=== PATIENT | male | born 1965 | race Caucasian/White ===

== ENCOUNTER 2016-08-22 08:35 | Day surgery (SDC) | payer OTHER ==
[~2016-08-22] VITALS: Ht 172.7 cm; Wt 58.0 kg
[~2016-08-22 08:35] MED LIST: ALBU6.7H; AMIT25TA PO; ASCO-96 PO; BENA20TA2 PO; BUDE10.2; BUPR75TA6 PO; CALC3.7S5 PO; CHOL2000 PO; CYAN1TAB39 PO; CYCL5TAB PO; LORA0.5T PO; MELO-190 PO; MORP15TA39 PO; MORP60TA34 PO; NAPR-874 PO; OCTR50AM IM; OMEP40CA6 PO; ONDA4TAB7 PO; OXYC10TA6 PO; POTA20TA6 PO; TIZA4CAP PO
[2016-08-22] MEDS ORDERED: LACTATED RINGERS 1,000 ML IV SCH (09:31)
[2016-08-22 09:32] VITALS: BP 131/72
[2016-08-22] MEDS ORDERED: LIDOCAINE 1%, 2ML SQ PRN (10:00)
[2016-08-22] MEDS ORDERED: MIDAZOLAM 1 MG/ML, 5ML ONE (10:15)
[2016-08-22] MEDS ORDERED: FENTANYL PF 250 MCG/5ML ONE (10:15)
[2016-08-22] MEDS ORDERED: ROCURONIUM 10 MG/ML ONE (10:26)
[2016-08-22] MEDS ORDERED: PROPOFOL 10 MG/ML, 20ML ONE (10:26)
[2016-08-22] MEDS ORDERED: HYDROmorphone 2 MG/ML, 1ML ONE (11:14)
[2016-08-22] MEDS ORDERED: MEPERIDINE/PF 25MG/0.5ML IVPush PRN (11:30)
[2016-08-22] MEDS ORDERED: hydrALAzine 20 MG/ML, 1ML IV PRN (11:30)
[2016-08-22] MEDS ORDERED: LABETALOL 5MG/ML, 20ML IV PRN (11:30)
[2016-08-22] MEDS ORDERED: ACETAMINOPHEN 325 MG TABLET PO PRN (11:30)
[2016-08-22] MEDS ORDERED: OXYcodone 5 MG/5 ML ORAL.SOL UDC PO PRN (11:30)
[2016-08-22] MEDS ORDERED: MIDAZOLAM 1 MG/ML, 2ML IV PRN (11:30)
[2016-08-22] MEDS ORDERED: HYDROmorphone 1 MG/ML, 1ML IV PRN (11:30)
[2016-08-22] MEDS ORDERED: FENTANYL PF 100 MCG/2ML IV PRN (11:30)
[2016-08-22] MEDS ORDERED: ALBUTEROL SULFATE 2.5 MG/3 ML NPPB PRN (11:30)
[2016-08-22] MEDS ORDERED: PROMETHAZINE 25 MG/ML, 1ML IV PRN (11:30)
[2016-08-22] MEDS ORDERED: ONDANSETRON 2MG/ML, 2ML IVPush PRN (11:30)
== END 2016-08-22 13:00 | disposition home or self-care (01) ==
LOC: OUT 08:35
PROVIDERS: ATTEND Internal Medicine Hematology & Oncology
DX: M48.8X4 Other specified spondylopathies, thoracic region (principal); E34.0 Carcinoid syndrome; J44.9 Chronic obstructive pulmonary disease, unspecified; F17.210 Nicotine dependence, cigarettes, uncomplicated; I10 Essential (primary) hypertension; J45.909 Unspecified asthma, uncomplicated; F12.10 Cannabis abuse, uncomplicated; Z90.49 Acquired absence of other specified parts of digestive tract
CPT/HCPCS: 20225; 77012; 88307; 88311; J2250; J2704; J3010; J7120

== ENCOUNTER 2016-09-09 09:03 | Emergency (ER) | payer OTHER ==
[~2016-09-09] VITALS: Ht 172.7 cm; Wt 58.5 kg
[2016-09-09] MEDS ORDERED: ONDANSETRON 2MG/ML, 2ML ONE (09:36)
[2016-09-09] MEDS ORDERED: FENTANYL PF 100 MCG/2ML ONE (09:36)
[2016-09-09] MEDS ORDERED: FENTANYL PF 100 MCG/2ML IV ONE (10:00)
[2016-09-09] MEDS ORDERED: CARISOPRODOL 350 MG TABLET PO ONE (10:30)
[2016-09-09 13:01] VITALS: BP 110/62
== END 2016-09-09 13:05 | disposition home or self-care (01) ==
LOC: ED 10:38
DX: N43.3 Hydrocele, unspecified (principal); M54.5 Low back pain; J45.909 Unspecified asthma, uncomplicated; Z90.49 Acquired absence of other specified parts of digestive tract
CPT/HCPCS: 76870; 96374; 99284; J3010

== ENCOUNTER → 2017-05-30 | Outpatient (CLI) | payer OTHER ==
[~2017-05-30] MED LIST changes: +EVER10TA PO; -MELO-190 PO; +MELO7.5T31 PO; +MORP-52 PO; -MORP15TA39 PO; -NAPR-874 PO; +NAPR250T6 PO; +OMNIPAQUE 350 MG/ML, 100ML BOTTLE ONE
== END | disposition home or self-care (01) ==
LOC: CFH 08:42
PROVIDERS: ATTEND Specialist
DX: C78.6 Secondary malignant neoplasm of retroperitoneum and peritoneum (principal); C78.7 Secondary malignant neoplasm of liver and intrahepatic bile duct; C7A.098 Malignant carcinoid tumors of other sites; R59.9 Enlarged lymph nodes, unspecified; J90 Pleural effusion, not elsewhere classified
CPT/HCPCS: 71260; 74177; Q9967

== ENCOUNTER → 2017-06-26 | Outpatient (CLI) | payer OTHER ==
[~2017-06-26] MED LIST changes: -OMNIPAQUE 350 MG/ML, 100ML BOTTLE ONE
== END | disposition home or self-care (01) ==
LOC: CARD 12:45
PROVIDERS: ATTEND Family Medicine
DX: J44.9 Chronic obstructive pulmonary disease, unspecified (principal); E78.5 Hyperlipidemia, unspecified; K21.9 Gastro-esophageal reflux disease without esophagitis; I10 Essential (primary) hypertension; L98.9 Disorder of the skin and subcutaneous tissue, unspecified
CPT/HCPCS: 94060; 94726; 94729

== ENCOUNTER → 2017-07-28 | Outpatient (CLI) | payer OTHER | END | disposition home or self-care (01) | LOC: RAD 12:56 | PROVIDERS: ATTEND Anesthesiology | DX: Z01.818 Encounter for other preprocedural examination (principal); J90 Pleural effusion, not elsewhere classified; R94.31 Abnormal electrocardiogram [ECG] [EKG] | CPT/HCPCS: 71046; 93005 ==

== ENCOUNTER 2017-09-06 12:05 | Emergency (ER) | payer OTHER ==
[~2017-09-06] VITALS: Ht 172.7 cm; Wt 63.6 kg
[~2017-09-06 12:05] MED LIST changes: -BUDE10.2; +BUDE10.2 INH; +SULF1TAB24 PO
[2017-09-06 12:09] VITALS: BP 156/84
== END 2017-09-06 13:57 | disposition home or self-care (01) ==
LOC: ED 12:57
DX: T81.31XA Disruption of external operation (surgical) wound, not elsewhere classified, initial encounter (principal); F17.200 Nicotine dependence, unspecified, uncomplicated
CPT/HCPCS: 99282

== ENCOUNTER → 2017-10-06 | Outpatient (CLI) | payer OTHER ==
[~2017-10-06] MED LIST changes: +MORP4CAR IT; +OMNIPAQUE 350 MG/ML, 100ML BOTTLE ONE
== END | disposition home or self-care (01) ==
LOC: CFH 09:48
PROVIDERS: ATTEND Specialist
DX: J90 Pleural effusion, not elsewhere classified (principal); R91.8 Other nonspecific abnormal finding of lung field; K86.89 Other specified diseases of pancreas; C7A.00 Malignant carcinoid tumor of unspecified site; C34.90 Malignant neoplasm of unspecified part of unspecified bronchus or lung
CPT/HCPCS: 71260; 74160; Q9967

== ENCOUNTER 2017-10-24 13:40 | Emergency (ER) | payer OTHER ==
[~2017-10-24] VITALS: Ht 172.7 cm; Wt 58.1 kg
[~2017-10-24 13:40] MED LIST changes: -OMNIPAQUE 350 MG/ML, 100ML BOTTLE ONE
[2017-10-24 14:27] VITALS: BP 202/94
== END 2017-10-24 14:31 | disposition home or self-care (01) ==
LOC: ED 14:00
DX: I10 Essential (primary) hypertension (principal); J45.909 Unspecified asthma, uncomplicated
CPT/HCPCS: 99281

== ENCOUNTER 2018-01-07 12:57 | Inpatient (IN) | payer OTHER ==
[~2018-01-07] VITALS: Ht 172.7 cm; Wt 55.4 kg
[~2018-01-07 12:57] MED LIST changes: -ALBU6.7H; +ALBU6.7H INH; -BENA20TA2 PO; +BENA20TA4 PO; +CHLO25TA PO
[2018-01-07] MEDS ORDERED: SODIUM CHLORIDE 0.9% 1,000 ML IV ONE (14:00)
[2018-01-07] MEDS ORDERED: POTASSIUM CHLORIDE 20 MEQ TAB.ER.PRT PO ONE ×2 (14:00→18:00)
[2018-01-07] MEDS ORDERED: POTASSIUM CHLORIDE 40 MEQ in SODIUM CHLORIDE 0.9% 500 ML IV ONE ×2 (14:00→19:30)
[2018-01-07] MEDS ORDERED: POTASSIUM CHLORIDE 20 MEQ TAB.ER.PRT ONE (14:12)
[2018-01-07 15:04] VITALS: BP 144/83
[2018-01-07 15:04] LABS: CLOSTRIDIUM DIFFICILE ANTIGEN NEGATIVE; CLOSTRIDIUM DIFFICILE TOXIN NEGATIVE (Negative)
[2018-01-07] MEDS ORDERED: LOSA100T7 PO (15:11)
[2018-01-07] MEDS ORDERED: ALBUTEROL SULFATE 2.5 MG/3 ML NPPB PRN (15:30)
[2018-01-07] MEDS ORDERED: MORPHINE SULFATE IT SCH (16:00)
[2018-01-07] MEDS: TIZANIDINE 4MG TABLET PO SCH ×2 (16:53→21:24)
[2018-01-07] MEDS ORDERED: MAGNESIUM SULFATE PMX 4GM/100M 100 ML IV ONE (17:00)
[2018-01-07 18:52] VITALS: BP 128/78
[2018-01-07] MEDS: LORazepam 0.5MG TABLET PO SCH (21:24)
[2018-01-07] MEDS: AMITRIPTYLINE 25 MG TABLET PO SCH (21:24)
[2018-01-08 00:46] VITALS: BP 112/70
[2018-01-08 05:16] LABS: BASOPHILS # (AUTO) 0.01 x10^3/uL (0-0.1); BASOPHILS % (AUTO) 0 % (0-1); EOSINOPHILS # (AUTO) 0.07 x10^3/uL (0-0.4); EOSINOPHILS % (AUTO) 1 % (1-7); LYMPHOCYTES # (AUTO) 0.75 x10^3/uL (1-3.4); LYMPHOCYTES % (AUTO) 13 % (22-44); MD NO; MEAN CORPUSCULAR HEMOGLOBIN 23.1 pg (27.5-34.5); MEAN PLATELET VOLUME 8.1 fL (7.4-10.4); MONOCYTES # (AUTO) 0.23 x10^3/uL (0.2-0.8); MONOCYTES % (AUTO) 4 % (2-9); NEUTROPHILS # (AUTO) 4.93 x10^3/uL (1.8-6.8); NEUTROPHILS % (AUTO) 82 % (42-75); PLATELET COUNT 350 x10^3/uL (130-400); RED BLOOD COUNT 3.99 x10^6/uL (4.38-5.82); RED CELL DISTRIBUTION WIDTH 16.8 % (9.4-14.8)
[2018-01-08 05:24] LABS: ANION GAP 12 mmol/L (5-15); CALCIUM 6.3 mg/dL (8.5-10.1); CHLORIDE 109 mmol/L (98-107); CREATININE 1.27 mg/dL (0.7-1.3)
[2018-01-08] MEDS: MORPHINE SULFATE IT SCH ×4 (06:00→20:44)
[2018-01-08] MEDS ORDERED: POTASSIUM PHOSPHATE 44 MEQ in SODIUM CHLORIDE 0.9% 500 ML IV ONE (06:30)
[2018-01-08] MEDS ORDERED: POTASSIUM PHOS 4.4 MEQ/ML IV SCH (06:30)
[2018-01-08] MEDS: POTASSIUM CHLORIDE 20 MEQ TAB.ER.PRT PO SCH ×3 (06:46→16:47)
[2018-01-08] MEDS: OMEPRAZOLE 20 MG CAPSULE.DR PO SCH (07:16)
[2018-01-08 07:33] VITALS: BP 134/78
[2018-01-08] MEDS ORDERED: hydrALAzine 20 MG/ML, 1ML IVPush PRN ×2 (08:30)
[2018-01-08] MEDS ORDERED: ACETAMINOPHEN 325 MG TABLET PO PRN (08:30)
[2018-01-08] MEDS ORDERED: LORazepam 0.5MG TABLET PO SCH (09:00)
[2018-01-08] MEDS ORDERED: TEMPLATE NON-FORMULARY MED. (Budesonide/Formoterol Fumarate (Symbicort 160-4.5 Mcg Inhaler INH SCH (09:00)
[2018-01-08] MEDS: LOSARTAN 50MG TABLET PO SCH (09:22)
[2018-01-08] MEDS: TIZANIDINE 4MG TABLET PO SCH ×3 (09:22→20:41)
[2018-01-08] MEDS: CHLORTHALIDONE 25 MG TABLET PO SCH (09:23)
[2018-01-08] MEDS: FLUTICASONE/VILANTEROL 200-25MCG/INH INH SCH (09:23)
[2018-01-08] MEDS: BUPROPION 75 MG TABLET HOMEMEDPO SCH (09:23)
[2018-01-08] MEDS: EVEROLIMUS 10 MG HOMEMEDPO SCH (10:56)
[2018-01-08] MEDS ORDERED: LOPERAMIDE 2 MG CAPSULE PO PRN (12:00)
[2018-01-08] MEDS ORDERED: LOPERAMIDE 1 MG/5 ML, 10ML UDC PO ONE (12:00)
[2018-01-08 13:20] VITALS: BP 114/68
[2018-01-08 16:33] LABS: ANION GAP 12 mmol/L (5-15); CALCIUM 6.3 mg/dL (8.5-10.1); CHLORIDE 111 mmol/L (98-107); CREATININE 1.18 mg/dL (0.7-1.3)
[2018-01-08 16:48] LABS: CREATINE KINASE, TOTAL 2291 U/L (39-308)
[2018-01-08] MEDS ORDERED: POTASSIUM CHLORIDE 40 MEQ in SODIUM CHLORIDE 0.9% 500 ML IV ONE (17:00)
[2018-01-08 19:15] VITALS: BP 144/80
[2018-01-08] MEDS ORDERED: TIZANIDINE 2MG TABLET ONE (20:30)
[2018-01-08] MEDS: LORazepam 0.5MG TABLET PO SCH (20:40)
[2018-01-08] MEDS: AMITRIPTYLINE 25 MG TABLET PO SCH (20:40)
[2018-01-09 00:43] VITALS: BP 151/85
[2018-01-09 05:08] LABS: ANION GAP 12 mmol/L (5-15); CALCIUM 6.1 mg/dL (8.5-10.1); CHLORIDE 112 mmol/L (98-107); CREATININE 1.02 mg/dL (0.7-1.3)
[2018-01-09] MEDS ORDERED: POTASSIUM PHOSPHATE 44 MEQ in SODIUM CHLORIDE 0.9% 500 ML IV ONE (05:30)
[2018-01-09] MEDS ORDERED: POTASSIUM PHOS 4.4 MEQ/ML IV SCH (05:30)
[2018-01-09] MEDS ORDERED: MAGNESIUM SULFATE PMX 2GM/50ML 50 ML IV ONE (05:30)
[2018-01-09] MEDS: MORPHINE SULFATE IT SCH ×3 (06:00→16:00)
[2018-01-09 07:05] VITALS: BP 124/75
[2018-01-09] MEDS ORDERED: TIZANIDINE 2MG TABLET ONE ×2 (08:02→16:09)
[2018-01-09] MEDS: POTASSIUM CHLORIDE 20 MEQ TAB.ER.PRT PO SCH ×2 (08:08→16:16)
[2018-01-09] MEDS: OMEPRAZOLE 20 MG CAPSULE.DR PO SCH (08:09)
[2018-01-09] MEDS: LOSARTAN 50MG TABLET PO SCH (08:10)
[2018-01-09] MEDS: TIZANIDINE 4MG TABLET PO SCH ×2 (08:10→16:00)
[2018-01-09] MEDS: BUPROPION 75 MG TABLET HOMEMEDPO SCH (08:11)
[2018-01-09] MEDS: FLUTICASONE/VILANTEROL 200-25MCG/INH INH SCH (08:11)
[2018-01-09] MEDS: EVEROLIMUS 10 MG HOMEMEDPO SCH (08:11)
[2018-01-09] MEDS: CHLORTHALIDONE 25 MG TABLET PO SCH (08:11)
[2018-01-09] MEDS ORDERED: MAGNESIUM OXIDE 400 MG TABLET PO SCH (09:00)
[2018-01-09 13:34] LABS: ANION GAP 12 mmol/L (5-15); CALCIUM 6.5 mg/dL (8.5-10.1); CHLORIDE 111 mmol/L (98-107)
[2018-01-09 13:35] LABS: CREATININE 0.95 mg/dL (0.7-1.3)
[2018-01-09 13:55] VITALS: BP 142/87
[2018-01-09] MEDS ORDERED: POTA20TA6 PO (14:14)
[2018-01-09] MEDS ORDERED: MAGN400T26 PO (14:14)
[2018-01-09] MEDS ORDERED: LOPE2CAP PO (14:14)
== END 2018-01-09 17:00 | disposition home or self-care (01) | DRG 682 ==
LOC: ED 13:55 → OBSVTOIN 13:56 → 5SO 13:56 → INTOOBSV 13:56 → ED 14:07 → DCLOUNGE 01-09 15:59
PROVIDERS: ADMIT Family Medicine; ATTEND Family Medicine
DX: N17.9 Acute kidney failure, unspecified (principal); E43 Unspecified severe protein-calorie malnutrition; E34.0 Carcinoid syndrome; C78.7 Secondary malignant neoplasm of liver and intrahepatic bile duct; C78.02 Secondary malignant neoplasm of left lung; C78.01 Secondary malignant neoplasm of right lung; C79.51 Secondary malignant neoplasm of bone; Z68.1 Body mass index [BMI] 19.9 or less, adult; E87.6 Hypokalemia; E83.42 Hypomagnesemia; K52.9 Noninfective gastroenteritis and colitis, unspecified; Z96.642 Presence of left artificial hip joint; Z87.891 Personal history of nicotine dependence; E83.39 Other disorders of phosphorus metabolism; D63.8 Anemia in other chronic diseases classified elsewhere; D50.9 Iron deficiency anemia, unspecified; F12.20 Cannabis dependence, uncomplicated; F32.9 Major depressive disorder, single episode, unspecified; I10 Essential (primary) hypertension; J44.9 Chronic obstructive pulmonary disease, unspecified; Z85.89 Personal history of malignant neoplasm of other organs and systems; Z88.8 Allergy status to other drugs, medicaments and biological substances; C80.1 Malignant (primary) neoplasm, unspecified; N18.9 Chronic kidney disease, unspecified; J45.909 Unspecified asthma, uncomplicated
CPT/HCPCS: 36415; 80048; 82550; 83735; 84100; 84132; 85025; 87324; 93005; 96374; 99285; G0378; J3480; J0360; J3475; J7030; J7040

== ENCOUNTER 2018-03-06 13:22 | Inpatient (IN) | payer OTHER ==
[~2018-03-06] VITALS: Ht 172.7 cm; Wt 59.6 kg
[~2018-03-06 13:22] MED LIST changes: +LOPE2CAP PO; +LOSA100T7 PO; +MAGN400T26 PO
[2018-03-06] MEDS ORDERED: POTA20TA6 PO (13:42)
[2018-03-06] MEDS ORDERED: CALCIUM GLUCONATE 9.2 MEQ in SODIUM CHLORIDE 0.9% 100 ML IV ONE ×2 (15:00→18:30)
[2018-03-06] MEDS ORDERED: MAGNESIUM SULFATE 1 GM in SODIUM CHLORIDE 0.9% 50 ML IV ONE (15:00)
[2018-03-06] MEDS ORDERED: SODIUM CHLORIDE 0.9% 1,000ML IVBOLUS ONE (15:00)
[2018-03-06] MEDS ORDERED: OCTREOTIDE ACETATE IM SCH (16:00)
[2018-03-06] MEDS ORDERED: ONDANSETRON 4 MG TABLET PO PRN (16:00)
[2018-03-06] MEDS ORDERED: ONDANSETRON ODT 4 MG PO PRN (16:00)
[2018-03-06] MEDS ORDERED: LOPERAMIDE 2 MG CAPSULE PO PRN (16:00)
[2018-03-06] MEDS ORDERED: TRAZODONE 50MG TABLET PO PRN (16:00)
[2018-03-06] MEDS ORDERED: hydrALAzine 20 MG/ML, 1ML IVPush PRN (16:00)
[2018-03-06 17:20] VITALS: BP 131/73
[2018-03-06] MEDS: SODIUM CHLORIDE 0.9% 1,000 ML IV SCH (17:54)
[2018-03-06] MEDS: TIZANIDINE 4MG TABLET PO SCH ×2 (17:55→21:00)
[2018-03-06] MEDS: MAGNESIUM SULFATE PMX 4GM/100M 100 ML IV SCH ×2 (18:10→23:40)
[2018-03-06] MEDS: MORPHINE SULFATE 4 MG/ML, 1ML IV SCH ×2 (18:19→21:00)
[2018-03-06 19:03] VITALS: BP 122/72
[2018-03-06] MEDS: BUDESONIDE 0.5 MG/2 ML INHA HHN SCH (21:00)
[2018-03-06] MEDS: ALBUTEROL SULFATE 2.5 MG/3 ML HHN SCH (21:20)
[2018-03-06] MEDS: HEPARIN 5,000 UNITS/ML, 1ML SQ SCH (21:21)
[2018-03-06] MEDS: AMITRIPTYLINE 25 MG TABLET PO SCH (21:21)
[2018-03-06] MEDS: LORazepam 0.5MG TABLET PO SCH (21:21)
[2018-03-06 21:32] LABS: ABSOLUTE RETICS # 0.013 x10^6/uL (0.5-1.5); RETICULOCYTE COUNT % 0.41 % (0.5-1.5)
[2018-03-06 21:34] LABS: RED BLOOD COUNT 3.12 x10^6/uL (4.38-5.82)
[2018-03-06 22:38] LABS: CLOSTRIDIUM DIFFICILE ANTIGEN NEGATIVE; CLOSTRIDIUM DIFFICILE TOXIN NEGATIVE (Negative)
[2018-03-07 02:00] VITALS: BP 127/71
[2018-03-07] MEDS: HEPARIN 5,000 UNITS/ML, 1ML SQ SCH ×3 (04:42→20:46)
[2018-03-07 04:44] LABS: CHLORIDE 112 mmol/L (98-107)
[2018-03-07 04:53] LABS: MEAN CORPUSCULAR HEMOGLOBIN 23.7 pg (27.5-34.5); MEAN CORPUSCULAR HGB CONC 32.8 g/dL (33.2-36.2); MEAN CORPUSCULAR VOLUME 72.3 fL (81-97); MEAN PLATELET VOLUME 8.1 fL (7.4-10.4); PLATELET COUNT 291 x10^3/uL (130-400); RED CELL DISTRIBUTION WIDTH 20.3 % (9.4-14.8)
[2018-03-07 05:00] LABS: ALANINE AMINOTRANSFERASE 95 U/L (12-78); ALBUMIN 2.5 g/dL (3.4-5.0); ALKALINE PHOSPHATASE 635 U/L (45-117); ANION GAP 14 mmol/L (5-15); BILIRUBIN,TOTAL 0.4 mg/dL (0.2-1.0); CALCIUM 6.8 mg/dL (8.5-10.1); CREATININE 0.99 mg/dL (0.7-1.3); THYROID STIMULATING HORMONE 0.005 mIU/L (0.358-3.740); TOTAL PROTEIN 6.9 g/dL (6.4-8.2)
[2018-03-07] MEDS ORDERED: CALCIUM GLUCONATE 9.2 MEQ in SODIUM CHLORIDE 0.9% 100 ML IV ONE (05:30)
[2018-03-07 05:46] LABS: BASOPHILS # (AUTO) 0.01 x10^3/uL (0-0.1); BASOPHILS % (AUTO) 0 % (0-1); EOSINOPHILS # (AUTO) 0.02 x10^3/uL (0-0.4); EOSINOPHILS % (AUTO) 0 % (1-7); LYMPHOCYTES # (AUTO) 0.45 x10^3/uL (1-3.4); LYMPHOCYTES % (AUTO) 6 % (22-44); MD SCAN; MONOCYTES % (AUTO) 7 % (2-9); NEUTROPHILS % (AUTO) 87 % (42-75)
[2018-03-07] MEDS: ALBUTEROL SULFATE 2.5 MG/3 ML HHN SCH ×4 (06:00→18:00)
[2018-03-07] MEDS: MORPHINE SULFATE 4 MG/ML, 1ML IV SCH ×4 (06:00→20:48)
[2018-03-07] MEDS: BUDESONIDE 0.5 MG/2 ML INHA HHN SCH ×2 (06:51→19:39)
[2018-03-07] MEDS: SODIUM CHLORIDE 0.9% 1,000 ML IV SCH ×2 (08:00→19:47)
[2018-03-07 08:10] VITALS: BP 129/65
[2018-03-07] MEDS: OMEPRAZOLE 20 MG CAPSULE.DR PO SCH (08:37)
[2018-03-07] MEDS: POTASSIUM CHLORIDE 20 MEQ TAB.ER.PRT PO SCH (08:37)
[2018-03-07] MEDS: FERROUS SULFATE 325 MG TABLET PO SCH ×3 (08:38→16:30)
[2018-03-07] MEDS: TIZANIDINE 4MG TABLET PO SCH ×3 (08:38→20:46)
[2018-03-07] MEDS: BUPROPION 75 MG TABLET PO SCH (08:38)
[2018-03-07] MEDS ORDERED: TEMPLATE NON-FORMULARY MED. (Budesonide/Formoterol Fumarate (Symbicort 160-4.5 Mcg Inhaler INH SCH (09:00)
[2018-03-07] MEDS ORDERED: CHLORTHALIDONE 25 MG PO SCH (09:00)
[2018-03-07] MEDS ORDERED: TEMPLATE NON-FORMULARY MED. (Losartan Potassium** 100 MG) PO SCH (09:00)
[2018-03-07 10:58] VITALS: BP 118/67
[2018-03-07 11:15] VITALS: BP 118/67
[2018-03-07 13:28] LABS: MICROSCOPIC NOT IND
[2018-03-07 13:30] VITALS: BP 117/68
[2018-03-07 13:31] LABS: CULTURE INDICATED? NO
[2018-03-07 14:16] LABS: MEAN CORPUSCULAR HEMOGLOBIN 24.5 pg (27.5-34.5); MEAN CORPUSCULAR HGB CONC 32.2 g/dL (33.2-36.2); MEAN CORPUSCULAR VOLUME 76.1 fL (81-97); MEAN PLATELET VOLUME 7.6 fL (7.4-10.4); PLATELET COUNT 284 x10^3/uL (130-400); RED BLOOD COUNT 3.37 x10^6/uL (4.38-5.82); RED CELL DISTRIBUTION WIDTH 24.7 % (9.4-14.8)
[2018-03-07 14:45] LABS: ANISOCYTOSIS 1+; BASOPHILS # (AUTO) 0.03 x10^3/uL (0-0.1); BASOPHILS % (AUTO) 1 % (0-1); EOSINOPHILS # (AUTO) 0.03 x10^3/uL (0-0.4); EOSINOPHILS % (AUTO) 1 % (1-7); LYMPHOCYTES # (AUTO) 0.51 x10^3/uL (1-3.4); LYMPHOCYTES % (AUTO) 10 % (22-44); MD MORPH REVIEW ONLY; MONOCYTES # (AUTO) 0.44 x10^3/uL (0.2-0.8); MONOCYTES % (AUTO) 8 % (2-9); NEUTROPHILS # (AUTO) 4.31 x10^3/uL (1.8-6.8); NEUTROPHILS % (AUTO) 81 % (42-75)
[2018-03-07 14:46] LABS: MICROCYTOSIS 1+
[2018-03-07 14:53] LABS: <PLATELET ESTIMATE> ADEQUATE; <PLT MORPHOLOGY> NORMAL PLT MORPH; OVALOCYTES 1+
[2018-03-07 15:57] LABS: OCCULT BLOOD NEGATIVE (NEGATIVE)
[2018-03-07] MEDS: AMITRIPTYLINE 25 MG TABLET PO SCH (20:46)
[2018-03-07] MEDS: LORazepam 0.5MG TABLET PO SCH (20:46)
[2018-03-07 20:56] VITALS: BP 130/68
[2018-03-08 02:00] VITALS: BP 133/73
[2018-03-08] MEDS: HEPARIN 5,000 UNITS/ML, 1ML SQ SCH ×3 (04:27→20:29)
[2018-03-08 05:55] LABS: MEAN CORPUSCULAR HEMOGLOBIN 25.7 pg (27.5-34.5); MEAN CORPUSCULAR HGB CONC 34.5 g/dL (33.2-36.2); MEAN CORPUSCULAR VOLUME 74.4 fL (81-97); MEAN PLATELET VOLUME 8.4 fL (7.4-10.4); PLATELET COUNT 246 x10^3/uL (130-400); RED BLOOD COUNT 3.21 x10^6/uL (4.38-5.82); RED CELL DISTRIBUTION WIDTH 24.2 % (9.4-14.8)
[2018-03-08] MEDS: MORPHINE SULFATE 4 MG/ML, 1ML IV SCH ×4 (06:00→21:00)
[2018-03-08 06:07] LABS: ALBUMIN 2.7 g/dL (3.4-5.0); ANION GAP 11 mmol/L (5-15); CALCIUM 6.6 mg/dL (8.5-10.1); CHLORIDE 113 mmol/L (98-107)
[2018-03-08 06:14] LABS: ALANINE AMINOTRANSFERASE 82 U/L (12-78); ALKALINE PHOSPHATASE 585 U/L (45-117); BILIRUBIN,TOTAL 0.4 mg/dL (0.2-1.0); PREALBUMIN 16.3 mg/dL (20.0-40.0)
[2018-03-08 06:20] LABS: BASOPHILS # (AUTO) 0.02 x10^3/uL (0-0.1); BASOPHILS % (AUTO) 1 % (0-1); EOSINOPHILS # (AUTO) 0.04 x10^3/uL (0-0.4); EOSINOPHILS % (AUTO) 1 % (1-7); LYMPHOCYTES % (AUTO) 14 % (22-44); MD SCAN; MONOCYTES % (AUTO) 10 % (2-9); NEUTROPHILS # (AUTO) 3.14 x10^3/uL (1.8-6.8); NEUTROPHILS % (AUTO) 75 % (42-75)
[2018-03-08] MEDS: SODIUM CHLORIDE 0.9% 1,000 ML IV SCH (07:15)
[2018-03-08] MEDS: ALBUTEROL SULFATE 2.5 MG/3 ML HHN SCH ×4 (07:53→19:37)
[2018-03-08] MEDS: BUDESONIDE 0.5 MG/2 ML INHA HHN SCH ×2 (07:53→19:37)
[2018-03-08] MEDS ORDERED: POTASSIUM CHLORIDE 40 MEQ in SODIUM CHLORIDE 0.9% 500 ML IV ONE (08:30)
[2018-03-08] MEDS: POTASSIUM CHLORIDE 20 MEQ TAB.ER.PRT PO SCH (08:34)
[2018-03-08] MEDS: OMEPRAZOLE 20 MG CAPSULE.DR PO SCH (08:34)
[2018-03-08] MEDS: BUPROPION 75 MG TABLET PO SCH (08:34)
[2018-03-08] MEDS: TIZANIDINE 4MG TABLET PO SCH ×3 (08:34→20:30)
[2018-03-08] MEDS: FERROUS SULFATE 325 MG TABLET PO SCH ×3 (08:34→16:00)
[2018-03-08 08:36] VITALS: BP 130/74
[2018-03-08 14:30] VITALS: BP 119/70
[2018-03-08] MEDS ORDERED: CALCIUM GLUCONATE 4.6 MEQ in SODIUM CHLORIDE 0.9% 50 ML IV ONE (15:00)
[2018-03-08] MEDS ORDERED: CALCIUM GLUCONATE 9.2 MEQ in SODIUM CHLORIDE 0.9% 100 ML IV ONE (15:30)
[2018-03-08 18:37] LABS: ANION GAP 11 mmol/L (5-15); CALCIUM 7.8 mg/dL (8.5-10.1); CHLORIDE 117 mmol/L (98-107); CREATININE 1.05 mg/dL (0.7-1.3)
[2018-03-08 19:32] VITALS: BP 134/67
[2018-03-08] MEDS: AMITRIPTYLINE 25 MG TABLET PO SCH (20:30)
[2018-03-08] MEDS: LORazepam 0.5MG TABLET PO SCH (20:30)
[2018-03-08] MEDS ORDERED: MAGNESIUM CHLORIDE 64 MG TABLET.DR PO SCH (21:00)
[2018-03-09] VITALS (7 sets, daily range): BP systolic 123–144; BP diastolic 62–81
[2018-03-09] MEDS: SODIUM CHLORIDE 0.9% 1,000 ML IV SCH (00:16)
[2018-03-09] MEDS: HEPARIN 5,000 UNITS/ML, 1ML SQ SCH ×3 (05:04→21:26)
[2018-03-09 05:07] LABS: MEAN CORPUSCULAR HEMOGLOBIN 25.8 pg (27.5-34.5); MEAN CORPUSCULAR HGB CONC 33.8 g/dL (33.2-36.2); MEAN CORPUSCULAR VOLUME 76.2 fL (81-97); MEAN PLATELET VOLUME 8.2 fL (7.4-10.4); PLATELET COUNT 219 x10^3/uL (130-400); RED BLOOD COUNT 2.92 x10^6/uL (4.38-5.82); RED CELL DISTRIBUTION WIDTH 24.8 % (9.4-14.8)
[2018-03-09 05:10] LABS: CHLORIDE 116 mmol/L (98-107)
[2018-03-09 05:19] LABS: ALANINE AMINOTRANSFERASE 69 U/L (12-78); ALBUMIN 2.5 g/dL (3.4-5.0); ALKALINE PHOSPHATASE 494 U/L (45-117); ANION GAP 10 mmol/L (5-15); BILIRUBIN,TOTAL 0.3 mg/dL (0.2-1.0); CALCIUM 7.9 mg/dL (8.5-10.1); CREATININE 0.91 mg/dL (0.7-1.3); TOTAL PROTEIN 6.6 g/dL (6.4-8.2)
[2018-03-09] MEDS: ALBUTEROL SULFATE 2.5 MG/3 ML HHN SCH ×4 (06:00→19:30)
[2018-03-09 06:15] LABS: BASOPHILS # (AUTO) 0.02 x10^3/uL (0-0.1); BASOPHILS % (AUTO) 0 % (0-1); EOSINOPHILS # (AUTO) 0.04 x10^3/uL (0-0.4); EOSINOPHILS % (AUTO) 1 % (1-7); LYMPHOCYTES # (AUTO) 0.63 x10^3/uL (1-3.4); LYMPHOCYTES % (AUTO) 16 % (22-44); MD MORPH REVIEW ONLY; MONOCYTES # (AUTO) 0.45 x10^3/uL (0.2-0.8); MONOCYTES % (AUTO) 11 % (2-9); NEUTROPHILS # (AUTO) 2.91 x10^3/uL (1.8-6.8); NEUTROPHILS % (AUTO) 72 % (42-75)
[2018-03-09 06:16] LABS: ANISOCYTOSIS 1+; MICROCYTOSIS 1+
[2018-03-09 06:17] LABS: ECHINOCYTES 1+; OVALOCYTES 1+
[2018-03-09 06:18] LABS: <PLATELET ESTIMATE> ADEQUATE; LARGE PLATELETS 1+
[2018-03-09] MEDS ORDERED: POTASSIUM CHLORIDE 40 MEQ in SODIUM CHLORIDE 0.9% 500 ML IV ONE (07:00)
[2018-03-09] MEDS: MORPHINE SULFATE 4 MG/ML, 1ML IV SCH ×4 (07:00→21:26)
[2018-03-09] MEDS: BUDESONIDE 0.5 MG/2 ML INHA HHN SCH ×2 (08:06→20:05)
[2018-03-09] MEDS: FERROUS SULFATE 325 MG TABLET PO SCH ×3 (08:28→16:56)
[2018-03-09] MEDS: IRON SUCROSE COMPLEX 100MG/5ML IV SCH (08:28)
[2018-03-09] MEDS: BUPROPION 75 MG TABLET PO SCH (08:28)
[2018-03-09] MEDS: OMEPRAZOLE 20 MG CAPSULE.DR PO SCH (08:28)
[2018-03-09] MEDS: POTASSIUM CHLORIDE 20 MEQ TAB.ER.PRT PO SCH ×2 (08:28→21:25)
[2018-03-09] MEDS: MAGNESIUM OXIDE 400 MG TABLET PO SCH ×2 (08:28→21:25)
[2018-03-09] MEDS: TIZANIDINE 4MG TABLET PO SCH ×3 (08:29→21:25)
[2018-03-09] MEDS ORDERED: CHOLESTYRAMINE LIGHT 4GM PACKET PO ONE (11:00)
[2018-03-09] MEDS ORDERED: LOPERAMIDE 2 MG CAPSULE PO PRN (11:00)
[2018-03-09] MEDS ORDERED: MAGNESIUM SULFATE PMX 2GM/50ML 50 ML IV ONE (12:30)
[2018-03-09] MEDS ORDERED: POTASSIUM PHOSPHATE 44 MEQ in SODIUM CHLORIDE 0.9% 500 ML IV ONE (12:30)
[2018-03-09] MEDS: LORazepam 0.5MG TABLET PO SCH (21:25)
[2018-03-09] MEDS: AMITRIPTYLINE 25 MG TABLET PO SCH (21:25)
[2018-03-10 01:58] VITALS: BP 127/64
[2018-03-10] MEDS: HEPARIN 5,000 UNITS/ML, 1ML SQ SCH (02:47)
[2018-03-10] MEDS: SODIUM CHLORIDE 0.9% 1,000 ML IV SCH (02:47)
[2018-03-10] MEDS: MORPHINE SULFATE 4 MG/ML, 1ML IV SCH (05:55)
[2018-03-10] MEDS: ALBUTEROL SULFATE 2.5 MG/3 ML HHN SCH ×2 (06:00)
[2018-03-10 06:58] LABS: ALANINE AMINOTRANSFERASE 63 U/L (12-78); ALBUMIN 2.4 g/dL (3.4-5.0); ANION GAP 8 mmol/L (5-15); CALCIUM 7.5 mg/dL (8.5-10.1); CHLORIDE 120 mmol/L (98-107); CREATININE 0.87 mg/dL (0.7-1.3)
[2018-03-10 07:00] LABS: ALKALINE PHOSPHATASE 481 U/L (45-117); BILIRUBIN,TOTAL 0.3 mg/dL (0.2-1.0); TOTAL PROTEIN 6.4 g/dL (6.4-8.2)
[2018-03-10] MEDS: BUDESONIDE 0.5 MG/2 ML INHA HHN SCH (07:06)
[2018-03-10 07:22] LABS: MEAN CORPUSCULAR HEMOGLOBIN 25.4 pg (27.5-34.5); MEAN CORPUSCULAR HGB CONC 33.3 g/dL (33.2-36.2); MEAN CORPUSCULAR VOLUME 76.3 fL (81-97); PLATELET COUNT 228 x10^3/uL (130-400); RED BLOOD COUNT 3.25 x10^6/uL (4.38-5.82)
[2018-03-10 07:45] VITALS: BP 129/75
[2018-03-10 08:21] LABS: RED CELL DISTRIBUTION WIDTH 23.5 % (9.4-14.8)
[2018-03-10 08:23] LABS: MD MORPH REVIEW ONLY
[2018-03-10 08:24] LABS: BASOPHILS # (AUTO) 0.02 x10^3/uL (0-0.1); BASOPHILS % (AUTO) 0 % (0-1); EOSINOPHILS # (AUTO) 0.08 x10^3/uL (0-0.4); EOSINOPHILS % (AUTO) 2 % (1-7); LYMPHOCYTES # (AUTO) 0.73 x10^3/uL (1-3.4); LYMPHOCYTES % (AUTO) 17 % (22-44); MONOCYTES # (AUTO) 0.54 x10^3/uL (0.2-0.8); MONOCYTES % (AUTO) 12 % (2-9); NEUTROPHILS % (AUTO) 69 % (42-75)
[2018-03-10 08:25] LABS: ANISOCYTOSIS 1+
[2018-03-10 08:26] LABS: MICROCYTOSIS 1+; OVALOCYTES 1+
[2018-03-10 08:27] LABS: <PLATELET ESTIMATE> ADEQUATE; LARGE PLATELETS 1+
[2018-03-10] MEDS: IRON SUCROSE COMPLEX 100MG/5ML IV SCH (08:36)
[2018-03-10] MEDS: FERROUS SULFATE 325 MG TABLET PO SCH (08:36)
[2018-03-10] MEDS: MAGNESIUM OXIDE 400 MG TABLET PO SCH (08:38)
[2018-03-10] MEDS: POTASSIUM CHLORIDE 20 MEQ TAB.ER.PRT PO SCH (08:38)
[2018-03-10] MEDS: TIZANIDINE 4MG TABLET PO SCH (08:38)
[2018-03-10] MEDS: BUPROPION 75 MG TABLET PO SCH (08:38)
[2018-03-10] MEDS: OMEPRAZOLE 20 MG CAPSULE.DR PO SCH (08:39)
[2018-03-10] MEDS ORDERED: LOPERAMIDE 2 MG CAPSULE PO SCH (09:00)
[2018-03-10] MEDS ORDERED: MAGN400T50 PO (09:51)
[2018-03-10] MEDS ORDERED: FERR-51 PO (09:51)
[2018-03-10] MEDS ORDERED: POTA20TA6 PO (09:51)
[2018-03-10] MEDS ORDERED: CHOL239. PO (09:51)
== END 2018-03-10 11:00 | disposition home or self-care (01) | DRG 643 ==
LOC: ED 14:13 → EDIP 16:07 → 3NW 17:00 → DCLOUNGE 03-10 10:39
PROVIDERS: ADMIT Family Medicine; ATTEND Family Medicine
PROC: 30233N1 Transfusion of Nonautologous Red Blood Cells into Peripheral Vein, Percutaneous Approach (ICD-10-PCS; principal; 2018-03-07)
DX: E34.0 Carcinoid syndrome (principal); E43 Unspecified severe protein-calorie malnutrition; F19.20 Other psychoactive substance dependence, uncomplicated; E87.2 Acidosis; N17.9 Acute kidney failure, unspecified; F11.20 Opioid dependence, uncomplicated; E87.8 Other disorders of electrolyte and fluid balance, not elsewhere classified; D63.8 Anemia in other chronic diseases classified elsewhere; E83.51 Hypocalcemia; E83.42 Hypomagnesemia; K52.9 Noninfective gastroenteritis and colitis, unspecified; E83.39 Other disorders of phosphorus metabolism; I95.9 Hypotension, unspecified; F32.9 Major depressive disorder, single episode, unspecified; E88.09 Other disorders of plasma-protein metabolism, not elsewhere classified; Z96.642 Presence of left artificial hip joint; R74.0 Nonspecific elevation of levels of transaminase and lactic acid dehydrogenase [LDH]; I10 Essential (primary) hypertension; M51.36 Other intervertebral disc degeneration, lumbar region; E87.6 Hypokalemia; G89.3 Neoplasm related pain (acute) (chronic); J45.909 Unspecified asthma, uncomplicated; Z66 Do not resuscitate; Z90.49 Acquired absence of other specified parts of digestive tract; Z87.891 Personal history of nicotine dependence; Z79.899 Other long term (current) drug therapy; Z88.8 Allergy status to other drugs, medicaments and biological substances; Z68.20 Body mass index [BMI] 20.0-20.9, adult
CPT/HCPCS: 36415; 71250; 74176; 80048; 80053; 81003; 82272; 82330; 82728; 83540; 83550; 83735; 84100; 84134; 84443; 84466; 85025; 85045; 86850; 86900; 86923; 87324; 93005; 94640; 96361; 96365; 99285; G0378; J0610; J1644; J1756; J3475; J3480; J7613; J7626; J7030; J7040; P9016

== ENCOUNTER → 2018-06-16 | Outpatient (CLI) | payer MEDICARE, OTHER ==
[~2018-06-16] MED LIST changes: -BENA20TA4 PO; +BENA20TA54 PO; +CALC-545 PO; +CHOL239. PO; +FERR-51 PO; +LOSA100T14 PO; -LOSA100T7 PO; +MAGN400T50 PO; +OMNIPAQUE 350 MG/ML, 100ML BOTTLE ONE; +POTA20TA14 PO
== END | disposition home or self-care (01) ==
LOC: CFH 08:39
PROVIDERS: ATTEND Specialist
DX: C7A.098 Malignant carcinoid tumors of other sites (principal); R59.1 Generalized enlarged lymph nodes; J90 Pleural effusion, not elsewhere classified; J98.11 Atelectasis; R91.1 Solitary pulmonary nodule; M51.37 Other intervertebral disc degeneration, lumbosacral region
CPT/HCPCS: 71260; 74160; Q9967

== ENCOUNTER → 2018-07-24 | Outpatient (CLI) | payer MEDICARE, OTHER | END | disposition home or self-care (01) | LOC: RAD 10:34 | PROVIDERS: ATTEND Specialist | DX: C78.7 Secondary malignant neoplasm of liver and intrahepatic bile duct (principal); R59.1 Generalized enlarged lymph nodes; J90 Pleural effusion, not elsewhere classified; R91.1 Solitary pulmonary nodule | CPT/HCPCS: 71260; 74177; Q9967 ==

== ENCOUNTER 2018-10-29 09:38 | Outpatient (CLI) | payer MEDICARE, OTHER ==
[~2018-10-29] VITALS: Ht 172.7 cm; Wt 66.2 kg
[~2018-10-29 09:38] MED LIST changes: -ALBU6.7H INH; +ALBU6.7H8 INH; -OMNIPAQUE 350 MG/ML, 100ML BOTTLE ONE; +TELO250T PO
[2018-10-29 09:40] VITALS: BP 114/75
[2018-10-29 10:15] LABS: ALBUMIN 3.3 g/dL (3.4-5.0); ANION GAP 7 mmol/L (5-15); CALCIUM 8.5 mg/dL (8.5-10.1); CHLORIDE 116 mmol/L (98-107)
[2018-10-29 10:18] LABS: ALANINE AMINOTRANSFERASE 69 U/L (12-78); ALKALINE PHOSPHATASE 493 U/L (45-117); BILIRUBIN,TOTAL 0.2 mg/dL (0.2-1.0); TOTAL PROTEIN 8.1 g/dL (6.4-8.2)
[2018-10-29] MEDS ORDERED: OCTREOTIDE LAR 20 MG IM ONE (10:30)
[2018-10-29] MEDS ORDERED: MAGNESIUM SULFATE/D5W 100 ML IVPB ONE (11:00)
[2019-01-19] MEDS ORDERED: POTA99TA2 PO (12:32)
== END 2018-10-29 23:59 | disposition home or self-care (01) ==
LOC: INFUSION 09:38
PROVIDERS: ATTEND Specialist
DX: C7A.00 Malignant carcinoid tumor of unspecified site (principal)
CPT/HCPCS: 36415; 80053; 83735; 96365; 96372; J2353

== ENCOUNTER 2018-11-17 12:37 | Outpatient (CLI) | payer MEDICARE, OTHER ==
[~2018-11-17] VITALS: Ht 172.7 cm; Wt 64.8 kg
== END 2018-11-17 23:59 | disposition home or self-care (01) ==
LOC: INFUSION 12:37
PROVIDERS: ATTEND Specialist
DX: C7A.00 Malignant carcinoid tumor of unspecified site (principal)
CPT/HCPCS: 36415; 80053; 83735; 96365; 96366; 96372; J2353; J3475

== ENCOUNTER 2019-03-02 12:05 | Outpatient (CLI) | payer MEDICARE ==
[~2019-03-02] VITALS: Ht 172.7 cm; Wt 65.7 kg
[2019-03-02 11:35] VITALS: BP 109/75
[~2019-03-02 12:05] MED LIST changes: +OCTREOTIDE LAR 20 MG IM ONE; +OMEP40CA42 PO; -OMEP40CA6 PO; +POTA99TA2 PO
[2019-03-02] MEDS ORDERED: POTASSIUM CHLORIDE 20 MEQ in SODIUM CHLORIDE 0.9% 500 ML IV ONE (13:00)
== END 2019-03-02 23:59 | disposition home or self-care (01) ==
LOC: INFUSION 12:05
PROVIDERS: ATTEND Specialist
DX: C7A.00 Malignant carcinoid tumor of unspecified site (principal); E87.6 Hypokalemia; Z85.05 Personal history of malignant neoplasm of liver; Z85.830 Personal history of malignant neoplasm of bone
CPT/HCPCS: 36415; 36591; 80053; 83735; 96365; 96366; 96372; J2353; J3480; J7040

== ENCOUNTER → 2019-03-24 | Outpatient (CLI) | payer MEDICARE ==
[2019-03-02 11:35] VITALS: BP 109/75
[2019-03-02 12:11] LABS: ALANINE AMINOTRANSFERASE 54 U/L (12-78); ALBUMIN 3.3 g/dL (3.4-5.0); ANION GAP 6 mmol/L (5-15); CALCIUM 8.5 mg/dL (8.5-10.1); CHLORIDE 119 mmol/L (98-107); CREATININE 1.19 mg/dL (0.7-1.3)
[2019-03-02 12:13] LABS: ALKALINE PHOSPHATASE 428 U/L (45-117); BILIRUBIN,TOTAL 0.3 mg/dL (0.2-1.0); TOTAL PROTEIN 8.2 g/dL (6.4-8.2)
[~2019-03-24] VITALS: Ht 172.7 cm; Wt 67.2 kg
[~2019-03-24] MED LIST changes: +POTASSIUM CHLORIDE 20 MEQ in SODIUM CHLORIDE 0.9% 250 ML IV SCH
[2019-03-24 07:55] LABS: ALANINE AMINOTRANSFERASE 45 U/L (12-78); ANION GAP 8 mmol/L (5-15); CALCIUM 8.6 mg/dL (8.5-10.1); CHLORIDE 119 mmol/L (98-107)
[2019-03-24 07:58] LABS: ALKALINE PHOSPHATASE 435 U/L (45-117); BILIRUBIN,TOTAL 0.3 mg/dL (0.2-1.0); TOTAL PROTEIN 8.1 g/dL (6.4-8.2)
[2019-03-24 08:02] VITALS: BP 107/73
== END | disposition home or self-care (01) ==
LOC: INFUSION 12:49
PROVIDERS: ATTEND Specialist
DX: C7A.00 Malignant carcinoid tumor of unspecified site (principal); E87.6 Hypokalemia; Z85.830 Personal history of malignant neoplasm of bone; Z85.05 Personal history of malignant neoplasm of liver
CPT/HCPCS: 36415; 80053; 83735; 96365; 96366; 96372; J2353; J3480; J7050

== ENCOUNTER 2019-04-13 06:49 | Outpatient (CLI) | payer MEDICARE ==
[~2019-04-13] VITALS: Ht 172.7 cm; Wt 67.1 kg
[~2019-04-13 06:49] MED LIST changes: -OCTREOTIDE LAR 20 MG IM ONE; -POTASSIUM CHLORIDE 20 MEQ in SODIUM CHLORIDE 0.9% 250 ML IV SCH
[2019-04-13] MEDS ORDERED: OCTREOTIDE LAR 20 MG IM ONE (11:30)
[2019-04-13 11:35] VITALS: BP 108/73
[2019-04-13 12:18] LABS: ALANINE AMINOTRANSFERASE 46 U/L (12-78); ALBUMIN 2.9 g/dL (3.4-5.0); ANION GAP 7 mmol/L (5-15); CALCIUM 8.3 mg/dL (8.5-10.1); CHLORIDE 119 mmol/L (98-107); CREATININE 1.31 mg/dL (0.7-1.3)
[2019-04-13 12:20] LABS: ALKALINE PHOSPHATASE 461 U/L (45-117); BILIRUBIN,TOTAL 0.3 mg/dL (0.2-1.0); TOTAL PROTEIN 7.8 g/dL (6.4-8.2)
== END 2019-04-13 23:59 | disposition home or self-care (01) ==
LOC: INFUSION 06:49
PROVIDERS: ATTEND Specialist
DX: Z85.830 Personal history of malignant neoplasm of bone (principal); Z85.05 Personal history of malignant neoplasm of liver
CPT/HCPCS: 36415; 80053; 83735; 96372; J2353

== ENCOUNTER 2019-05-04 14:33 | Outpatient (CLI) | payer MEDICARE ==
[~2019-05-04] VITALS: Ht 172.7 cm; Wt 64.1 kg
[2019-05-04 11:30] VITALS: BP 103/70
[2019-05-04 11:56] LABS: ALANINE AMINOTRANSFERASE 56 U/L (12-78); ANION GAP 8 mmol/L (5-15); CALCIUM 9.1 mg/dL (8.5-10.1); CHLORIDE 119 mmol/L (98-107)
[2019-05-04 11:59] LABS: ALKALINE PHOSPHATASE 580 U/L (45-117); BILIRUBIN,TOTAL 0.4 mg/dL (0.2-1.0); TOTAL PROTEIN 8.1 g/dL (6.4-8.2)
[~2019-05-04 14:33] MED LIST changes: +OCTREOTIDE LAR 20 MG IM ONE
[2019-05-04] MEDS ORDERED: POTA20TA89 PO (15:53)
== END 2019-05-04 23:59 | disposition home or self-care (01) ==
LOC: INFUSION 14:33
PROVIDERS: ATTEND Specialist
DX: C7A.00 Malignant carcinoid tumor of unspecified site (principal); C78.00 Secondary malignant neoplasm of unspecified lung; C78.7 Secondary malignant neoplasm of liver and intrahepatic bile duct; C79.51 Secondary malignant neoplasm of bone
CPT/HCPCS: 36415; 80053; 83735; 96372; J2353

== ENCOUNTER → 2019-05-12 | Outpatient (CLI) | payer MEDICARE, OTHER ==
[~2019-05-12] MED LIST changes: -OCTREOTIDE LAR 20 MG IM ONE; +OMNIPAQUE 350 MG/ML, 100ML BOTTLE ONE; +POTA20TA89 PO
== END | disposition home or self-care (01) ==
LOC: CFH 09:23
PROVIDERS: ATTEND Specialist
DX: C78.7 Secondary malignant neoplasm of liver and intrahepatic bile duct (principal); C7A.00 Malignant carcinoid tumor of unspecified site; R59.0 Localized enlarged lymph nodes; J90 Pleural effusion, not elsewhere classified; J98.11 Atelectasis; R16.0 Hepatomegaly, not elsewhere classified; R19.00 Intra-abdominal and pelvic swelling, mass and lump, unspecified site
CPT/HCPCS: 71260; 74177; Q9967

== ENCOUNTER 2019-05-27 11:44 | Outpatient (CLI) | payer MEDICARE, OTHER ==
[~2019-05-27] VITALS: Ht 172.7 cm; Wt 63.0 kg
[~2019-05-27 11:44] MED LIST changes: -OMNIPAQUE 350 MG/ML, 100ML BOTTLE ONE
[2019-05-27] MEDS ORDERED: OCTREOTIDE LAR 20 MG IM ONE (12:00)
[2019-05-27 12:33] LABS: ALANINE AMINOTRANSFERASE 45 U/L (12-78); ALBUMIN 2.6 g/dL (3.4-5.0); ANION GAP 8 mmol/L (5-15); CALCIUM 8.4 mg/dL (8.5-10.1); CHLORIDE 118 mmol/L (98-107)
[2019-05-27 12:36] LABS: ALKALINE PHOSPHATASE 460 U/L (45-117); BILIRUBIN,TOTAL 0.4 mg/dL (0.2-1.0); TOTAL PROTEIN 7.6 g/dL (6.4-8.2)
[2019-05-27 13:45] VITALS: BP 95/65
== END 2019-05-27 23:59 | disposition home or self-care (01) ==
LOC: INFUSION 11:44
PROVIDERS: ATTEND Specialist
DX: C7A.00 Malignant carcinoid tumor of unspecified site (principal); Z85.118 Personal history of other malignant neoplasm of bronchus and lung; Z85.830 Personal history of malignant neoplasm of bone; Z85.05 Personal history of malignant neoplasm of liver
CPT/HCPCS: 36415; 80053; 83735; 96372; J2353

== ENCOUNTER 2019-06-15 11:50 | Outpatient (CLI) | payer MEDICARE, OTHER ==
[~2019-06-15] VITALS: Ht 172.7 cm; Wt 64.3 kg
[2019-06-15 11:50] VITALS: BP 85/60
[2019-06-15] MEDS ORDERED: OCTREOTIDE LAR 20 MG IM ONE (12:00)
[2019-06-15 12:23] LABS: ALANINE AMINOTRANSFERASE 43 U/L (12-78); ALBUMIN 2.6 g/dL (3.4-5.0); ANION GAP 9 mmol/L (5-15); CALCIUM 8.6 mg/dL (8.5-10.1); CHLORIDE 113 mmol/L (98-107); CREATININE 1.19 mg/dL (0.7-1.3)
[2019-06-15 12:25] LABS: ALKALINE PHOSPHATASE 414 U/L (45-117); BILIRUBIN,TOTAL 0.4 mg/dL (0.2-1.0); TOTAL PROTEIN 7.3 g/dL (6.4-8.2)
[2019-06-15] MEDS ORDERED: MAGNESIUM SULFATE PMX 2GM/50ML 50 ML IV ONE (12:30)
== END 2019-06-15 23:59 | disposition home or self-care (01) ==
LOC: INFUSION 11:50
PROVIDERS: ATTEND Specialist
DX: C7A.00 Malignant carcinoid tumor of unspecified site (principal); Z85.05 Personal history of malignant neoplasm of liver; Z85.830 Personal history of malignant neoplasm of bone; Z85.118 Personal history of other malignant neoplasm of bronchus and lung
CPT/HCPCS: 36415; 80053; 83735; 96365; 96366; 96372; J2353; J3475

== ENCOUNTER 2019-07-06 12:43 | Outpatient (CLI) | payer MEDICARE, OTHER ==
[~2019-07-06] VITALS: Ht 172.7 cm; Wt 65.4 kg
[2019-07-06 12:13] LABS: ALANINE AMINOTRANSFERASE 43 U/L (12-78); ALBUMIN 2.6 g/dL (3.4-5.0); ANION GAP 10 mmol/L (5-15); CALCIUM 8.4 mg/dL (8.5-10.1); CHLORIDE 116 mmol/L (98-107); CREATININE 1.41 mg/dL (0.7-1.3)
[2019-07-06 12:15] LABS: ALKALINE PHOSPHATASE 264 U/L (45-117); BILIRUBIN,TOTAL 0.6 mg/dL (0.2-1.0); TOTAL PROTEIN 7.3 g/dL (6.4-8.2)
[~2019-07-06 12:43] MED LIST changes: +OCTREOTIDE LAR 20 MG IM ONE; +PLEASE ENTER HEIGHT AND WEIGHT MC SCH
[2019-07-06] MEDS ORDERED: MAGNESIUM SULFATE IV ONE (13:00)
[2019-07-06] MEDS ORDERED: POTASSIUM CHLORIDE IV ONE (13:00)
[2019-07-06] MEDS ORDERED: SODIUM CHLORIDE 0.9% IV ONE (13:00)
[2019-07-06 15:52] VITALS: BP 102/72
== END 2019-07-06 23:59 | disposition home or self-care (01) ==
LOC: INFUSION 12:43
PROVIDERS: ATTEND Specialist
DX: C7A.00 Malignant carcinoid tumor of unspecified site (principal); C78.00 Secondary malignant neoplasm of unspecified lung; C78.7 Secondary malignant neoplasm of liver and intrahepatic bile duct; C79.51 Secondary malignant neoplasm of bone; Z90.49 Acquired absence of other specified parts of digestive tract; I10 Essential (primary) hypertension; Z87.891 Personal history of nicotine dependence; Z96.642 Presence of left artificial hip joint; J45.909 Unspecified asthma, uncomplicated
CPT/HCPCS: 36415; 80053; 83735; 96365; 96366; 96372; J2353; J3475; J3480; J7040

== ENCOUNTER 2019-07-12 22:44 | Emergency (ER) | payer MEDICARE, OTHER ==
[~2019-07-12] VITALS: Ht 177.8 cm; Wt 66.0 kg
[~2019-07-12 22:44] MED LIST changes: -OCTREOTIDE LAR 20 MG IM ONE; -PLEASE ENTER HEIGHT AND WEIGHT MC SCH
[2019-07-12] MEDS ORDERED: PROPOFOL 100 ML IV ONE (22:49)
--- NOTE | 2019-07-12 23:00 | NUR ---
PATIENT ARRIVED VIA [facility] C/O SOB. LABORED BREATHING WITH DISTENDED ABDOMEN. PATIENT OXYGEN SATURATION 70'S RA UPON EMS ARRIVAL.
--- NOTE | 2019-07-12 23:10 | NUR ---
INTUBATION STARTED. 20 MG ETOMIDATE AND 70 MG SUCC GIVEN.
[2019-07-12] MEDS ORDERED: PROPOFOL 100 ML IV PRN (23:30)
[2019-07-12] MEDS ORDERED: VANCOMYCIN PER PHARMACY MC PRN (23:30)
[2019-07-12] MEDS ORDERED: SUCCINYLCHOLINE 20 MG/ML, 10ML IVPush ONE (23:30)
[2019-07-12] MEDS ORDERED: PIPERACILLIN/TAZO/PMX 3.375GM 50 ML IV ONE (23:30)
[2019-07-12] MEDS ORDERED: SODIUM CHLORIDE 0.9% 1,000ML IVBOLUS ONE (23:30)
--- NOTE | 2019-07-13 00:10 | NUR ---
PATIENT TO CT SCAN.
[2019-07-13] MEDS ORDERED: OMNIPAQUE 350 MG/ML, 100ML BOTTLE ONE (00:11)
--- NOTE | 2019-07-13 00:16 | NUR ---
PERSON TO CONTACT: JAYDEN PRASAD (),
--- NOTE | 2019-07-13 00:20 | NUR ---
BACK FROM CT SCAN. AWAITING RESULT
[2019-07-13] MEDS ORDERED: PIPERACILLIN/TAZO/PMX 3.375GM 50 ML ONE (00:25)
[2019-07-13] MEDS ORDERED: ETOMIDATE 20 MG/10 ML IVPush ONE (00:30)
[2019-07-13 00:45] LABS: BASOPHILS # (AUTO) 0.05 x10^3/uL (0-0.1); BASOPHILS % (AUTO) 1 % (0-1); EOSINOPHILS # (AUTO) 0.08 x10^3/uL (0-0.4); EOSINOPHILS % (AUTO) 1 % (1-7); LYMPHOCYTES # (AUTO) 1.31 x10^3/uL (1-3.4); LYMPHOCYTES % (AUTO) 17 % (22-44); MD NO; MEAN CORPUSCULAR HGB CONC 32.1 g/dL (33.2-36.2); MEAN CORPUSCULAR VOLUME 78.1 fL (81-97); MEAN PLATELET VOLUME 8.7 fL (7.4-10.4); MONOCYTES # (AUTO) 0.16 x10^3/uL (0.2-0.8); MONOCYTES % (AUTO) 2 % (2-9); NEUTROPHILS # (AUTO) 6.19 x10^3/uL (1.8-6.8); NEUTROPHILS % (AUTO) 79 % (42-75); PLATELET COUNT 260 x10^3/uL (130-400); RED BLOOD COUNT 4.31 x10^6/uL (4.38-5.82); RED CELL DISTRIBUTION WIDTH 21.4 % (9.4-14.8)
--- NOTE | 2019-07-13 00:55 | NUR ---
PATIENT HYPOTENSIVE. MD AWARE. 2ND LITER NS BOLUS INFUSING PER ERP.
[2019-07-13] MEDS ORDERED: SODIUM CHLORIDE 0.9% 1,000ML IVBOLUS ONE (01:00)
[2019-07-13] MEDS ORDERED: VANCOMYCIN 1,600 MG in SODIUM CHLORIDE 0.9% 250 ML IV ONE (01:00)
[2019-07-13 01:03] LABS: MICROSCOPIC NOT IND
[2019-07-13 01:06] LABS: INTERNATIONAL NORMALIZED RATIO 1.82 (0.93-1.1); PROTHROMBIN TIME 19.4 Seconds (9.6-11.5)
[2019-07-13 01:09] LABS: CHLORIDE 118 mmol/L (98-107)
[2019-07-13 01:10] LABS: ALANINE AMINOTRANSFERASE 69 U/L (12-78); ALBUMIN 1.9 g/dL (3.4-5.0); ANION GAP 13 mmol/L (5-15); CALCIUM 6.9 mg/dL (8.5-10.1); CREATININE 1.39 mg/dL (0.7-1.3)
[2019-07-13 01:14] LABS: ALKALINE PHOSPHATASE 178 U/L (45-117); BILIRUBIN,TOTAL 0.5 mg/dL (0.2-1.0); TOTAL PROTEIN 5.5 g/dL (6.4-8.2); TROPONIN I < 0.015 ng/mL (0.000-0.045)
--- NOTE | 2019-07-13 01:15 | NUR ---
COVID and Flu specimen obtained and sent to lab.
[2019-07-13 01:54] LABS: RAPID INFLUENZA A Negative (Negative); RAPID INFLUENZA B Negative (Negative)
--- NOTE | 2019-07-13 02:02 | NUR ---
ADMISSION ORDERS MADE. SURGICAL CONSULT DONE. PATIENT GOING TO OR. AWAITING OR TO CALL BACK.
[2019-07-13 02:15] VITALS: BP 68/51
[2019-07-13] MEDS ORDERED: NOREPINEPHRINE 8 MG in SODIUM CHLORIDE 0.9% 242 ML IV PRN (02:30)
--- NOTE | 2019-07-13 02:30 | NUR ---
ERP AT BEDSIDE. PATIENT LOST PULSES AND BLOOD PRESSURE.
--- NOTE | 2019-07-13 02:35 | NUR ---
ERP SPOKE TO , PATIENT IS DNR.
[2019-07-13] MEDS ORDERED: HYDROmorphone 2 MG/ML, 1ML ONE ×3 (02:48→03:59)
[2019-07-13] MEDS ORDERED: LORazepam 2 MG/ML, 1ML ONE (02:48)
--- NOTE | 2019-07-13 02:49 | NUR ---
PATIENT COMFORT CARE PER ERP.
[2019-07-13] MEDS ORDERED: LORazepam 2 MG/ML, 1ML IVPush ONE ×2 (03:00)
[2019-07-13] MEDS ORDERED: HYDROmorphone 1 MG/ML, 1ML INJ IV ONE (03:00)
--- NOTE | 2019-07-13 03:00 | NUR ---
FAMILY AT BESIDE.
--- NOTE | 2019-07-13 03:15 | NUR ---
keno writer/runner covering for primary rn lunch break
--- NOTE | 2019-07-13 03:30 | NUR ---
2mg hydromorphone given per provider verbal order
--- NOTE | 2019-07-13 04:00 | NUR ---
ERP REMOVED ET TUBE. RE-MEDICATED FOR PAIN.
[2019-07-13] MEDS: HYDROmorphone 2 MG/ML, 1ML IVPush PRN ×2 (04:02→04:36)
--- NOTE | 2019-07-13 04:13 | NUR ---
Yobani motta in ED - 07/13/19 at 0414 by LIDIA PATIENT NO PULSE, NO BREATHING. TIME OF 209.
--- NOTE | 2019-07-13 04:14 | NUR ---
TIME OF 1510.
--- NOTE | 2019-07-13 04:20 | NUR ---
Whipped Topping Supervisor notified @ [id number]. not a coroners case.
--- NOTE | 2019-07-13 04:26 | NUR ---
called donor [facility]. Addendum: 07/13/19 at 0545 by JOSE late entry: per david evans not a donor candidate.
--- NOTE | 2019-07-13 05:15 | NUR ---
1 plastic bag of belongings tagged and given to Security. body taken to [facility].
--- NOTE | 2019-07-13 21:55 | NUR ---
COVID RESULT NOT DETECTED PER SYDNEY IN THE LAB.
== END 2019-07-13 23:13 | disposition expired ==
LOC: ED 22:51 → UNDOADMIN 07-13 02:03 → EDIP 07-13 02:03 → ED 07-13 23:13
DX: R65.20 Severe sepsis without septic shock (principal); Z20.828 Contact with and (suspected) exposure to other viral communicable diseases; J96.00 Acute respiratory failure, unspecified whether with hypoxia or hypercapnia; E87.2 Acidosis; I31.9 Disease of pericardium, unspecified; J93.9 Pneumothorax, unspecified; K66.8 Other specified disorders of peritoneum; E87.6 Hypokalemia; J90 Pleural effusion, not elsewhere classified; D50.9 Iron deficiency anemia, unspecified; R94.31 Abnormal electrocardiogram [ECG] [EKG]; K63.1 Perforation of intestine (nontraumatic); J45.909 Unspecified asthma, uncomplicated; Z90.49 Acquired absence of other specified parts of digestive tract; Z96.642 Presence of left artificial hip joint; Z87.891 Personal history of nicotine dependence
CPT/HCPCS: 31500; 36415; 36600; 71275; 74174; 80053; 81003; 82803; 83605; 83690; 83880; 84484; 85025; 85610; 85730; 86850; 86900; 87040; 87400; 93005; 94002; 96361; 96365; 96375; 96376; 99291; 99292; J0330; J1170; J2060; J2543; J2704; J3370; J7030; J7050; Q9967